=== PATIENT | male | born 2000 | race Caucasian/White ===

== ENCOUNTER 2022-03-02 10:47 | Emergency (ER) | payer SELFPAY ==
[~2022-03-02] VITALS: Ht 185.4 cm; Wt 88.6 kg
[2022-03-02 11:04] VITALS: BP 133/89; TEMP 98
[2022-03-02 11:38] VITALS: PULSE 67
== END 2022-03-02 11:38 | disposition home or self-care (01) ==
LOC: COL.ER 10:47
DX: S61.215A Laceration without foreign body of left ring finger without damage to nail, initial encounter (principal); S61.211A Laceration without foreign body of left index finger without damage to nail, initial encounter; S61.213A Laceration without foreign body of left middle finger without damage to nail, initial encounter; Z28.310 Unvaccinated for COVID-19; W26.8XXA Contact with other sharp object(s), not elsewhere classified, initial encounter; Y92.59 Other trade areas as the place of occurrence of the external cause; Y99.0 Civilian activity done for income or pay